=== PATIENT | male | born 1970 | race African-American/Black ===

== ENCOUNTER 2017-06-24 09:23 | Outpatient (CLI) | payer OTHER ==
--- NOTE | 2017-06-24 11:52 | MRI ---
MRI LUMBAR SPINE WITHOUT CONTRAST: Date: 06-24-17 Comparison: None. History: Heavy lifting injury, back pain for two months, sacroiliac joint dysfunction. Technique: Multiplanar, multisequence MR imaging of the lumbar spine provided without contrast. FINDINGS: The sagittal STIR imaging demonstrates no focal area of osseous marrow edema. No anterolisthesis or retrolisthesis seen in the lumbar spine. Assuming five lumbar type vertebral b odies, conus medullaris terminates at the L1 level. T12-L1: Intervertebral disc height and signal intensity within normal limits with no significant salazar tral canal or neural foraminal stenosis. L1-2: Intervertebral disc height and signal intensity is within normal limits with no significant ce ntral canal or neural foraminal stenosis. L2-3: There is disc space narrowing, disc desiccation and anterior osteophyte formation. There is mi ld bilateral facet hypertrophy. No significant central canal or neural foraminal stenosis. L3-4: Mild bilateral facet hypertrophy. Intervertebral disc height and signal intensity is within no rmal limits with no significant central canal or foraminal stenosis. L4-5: Intervertebral disc height and signal intensity is within normal limits. Mild bilateral facet hypertrophy. No significant central canal or neural foraminal stenosis. L5-S1: Intervertebral disc height and signal intensity is grossly unremarkable. No significant centr al canal or neural foraminal stenosis. The imaged retroperitoneal structures appear grossly unremarkable. IMPRESSION: No significant central canal or neural foraminal stenosis. If there is concern for sacroiliac joint dysfunction, dedicated MRI of the sacroiliac joints with an d without contrast suggested. POS: [facility]
== END 2017-06-24 09:24 | disposition home or self-care (01) ==
LOC: MRI 09:23
PROVIDERS: ATTEND Family Medicine
DX: M53.3 Sacrococcygeal disorders, not elsewhere classified (principal)
CPT/HCPCS: 72148

== ENCOUNTER 2017-09-20 12:40 | Emergency (ER) | payer OTHER, SELFPAY | END 2017-09-20 13:16 | disposition home or self-care (01) | LOC: SCSER 12:40 | DX: S29.012A Strain of muscle and tendon of back wall of thorax, initial encounter (principal); E10.9 Type 1 diabetes mellitus without complications; X50.1XXA Overexertion from prolonged static or awkward postures, initial encounter | CPT/HCPCS: 99283 ==

== ENCOUNTER 2017-10-31 12:09 | Emergency (ER) | payer OTHER | END 2017-10-31 13:24 | disposition home or self-care (01) | LOC: SCSER 12:09 | DX: G89.29 Other chronic pain (principal); M54.5 Low back pain; E10.9 Type 1 diabetes mellitus without complications | CPT/HCPCS: 99283 ==

== ENCOUNTER 2017-12-01 08:14 | Emergency (ER) | payer OTHER ==
[2017-12-01 08:52] LABS: #Lymphocytes 1.1 thou/uL (1.20-3.40); #Monocytes 0.4 thou/uL (0.11-0.59); #Neutrophils 1.7 thou/uL (1.40-6.50); %Basophils 0.8 % (0.0-1.0); %Eosinophils 1.2 % (0.0-10.0); %Lymphocytes 35.5 % (21.0-51.0); %Monocytes 11.3 % (0.0-10.0); %Neutrophils 51.3 % (42.0-75.0); Hemoglobin 8.2 g/dL (14.0-18.0); Mean Corpuscular HGB CONC 31.3 g/dL (32.0-36.0); Mean Corpuscular Hemoglobin 29.4 pg (27.0-31.0); Mean Corpuscular Volume 93.8 fl (80.0-94.0); Mean Platelet Volume 7.9 fL (7.4-10.4); Platelet Count 215 thou/uL (130-400); RBC Distribution Width 14.1 % (11.5-14.5); White Blood Cell (WBC) Count 3.2 thou/uL (4.8-10.8)
[2017-12-01 09:14] LABS: ALT (SGPT) 11 U/L (8-55); AST (SGOT) 19 U/L (5-34); Albumin 4.2 g/dL (3.5-5.0); Alkaline Phosphatase 59 U/L (40-150); Anion Gap 10 mmol/L (10-20); BUN (Urea Nitrogen) 12 mg/dL (8.9-20.6); Bilirubin, Total 0.3 mg/dL (0.2-1.2); CK (CPK) 118 U/L (30-200); Calc. Creatinine Clearance 0 mL/min (70-130); Calcium 10.8 mg/dL (7.8-10.44); Carbon Dioxide 29 mmol/L (22-29); Chloride 104 mmol/L (98-107); Estimated GFR-MDRD 58; Globulin 3.6 g/dL (2.4-3.5); Potassium 3.4 mmol/L (3.5-5.1); Protein, Total 7.8 g/dL (6.0-8.3); Sodium 140 mmol/L (136-145)
[2017-12-01 09:17] LABS: Glucose 31 mg/dL (70-105)
[2017-12-01 09:18] LABS: Troponin I 0.017 ng/mL (< 0.028)
[2017-12-01] MEDS ORDERED: Dextrose 50% Abboject 50 ML SYRINGE ONE (09:19)
--- NOTE | 2017-12-01 10:51 | RAD ---
AP CHEST: Indication: Altered mental status. FINDINGS: There are low lung volumes. There is bibasilar atelectasis. There is cardiomegaly without evidence of cardiac decompensation. No acute osseous abnormality is evident. IMPRESSION: 1. Low lung volumes. 2. Cardiomegaly. 3. Bibasilar atelectasis. POS: [facility]
== END 2017-12-01 11:50 | disposition short-term general hospital (02) ==
LOC: ERS 08:14
DX: E10.649 Type 1 diabetes mellitus with hypoglycemia without coma (principal)
CPT/HCPCS: 36415; 36416; 71045; 80053; 82553; 84484; 85025; 96361; 96374

== ENCOUNTER 2017-12-02 18:37 | Observation (INO) | payer OTHER ==
[2017-12-02 19:22] LABS: #Basophils 0.1 thou/uL (0.0-0.2); #Eosinphils 0.1 thou/uL (0.0-0.7); #Lymphocytes 1.3 thou/uL (1.20-3.40); #Monocytes 0.4 thou/uL (0.11-0.59); #Neutrophils 2.4 thou/uL (1.40-6.50); %Basophils 1.5 % (0.0-1.0); %Eosinophils 1.5 % (0.0-10.0); %Lymphocytes 30.4 % (21.0-51.0); %Monocytes 9.4 % (0.0-10.0); %Neutrophils 57.2 % (42.0-75.0); Hemoglobin 8.3 g/dL (14.0-18.0); Mean Corpuscular HGB CONC 32.7 g/dL (32.0-36.0); Mean Corpuscular Hemoglobin 29.7 pg (27.0-31.0); Mean Corpuscular Volume 90.9 fl (80.0-94.0); Mean Platelet Volume 7.3 fL (7.4-10.4); Platelet Count 239 thou/uL (130-400); RBC Distribution Width 14.2 % (11.5-14.5); Red Blood Cell (RBC) Count 2.81 mill/uL (4.70-6.10); White Blood Cell (WBC) Count 4.3 thou/uL (4.8-10.8)
[2017-12-02 19:41] LABS: ALT (SGPT) 12 U/L (8-55); AST (SGOT) 17 U/L (5-34); Albumin 4.6 g/dL (3.5-5.0); Alkaline Phosphatase 65 U/L (40-150); Anion Gap 13 mmol/L (10-20); BUN (Urea Nitrogen) 16 mg/dL (8.9-20.6); Bilirubin, Total 0.3 mg/dL (0.2-1.2); Calc. Creatinine Clearance 0 mL/min (70-130); Calcium 10.7 mg/dL (7.8-10.44); Carbon Dioxide 27 mmol/L (22-29); Chloride 104 mmol/L (98-107); Estimated GFR-MDRD 61; Globulin 4.2 g/dL (2.4-3.5); Potassium 3.1 mmol/L (3.5-5.1); Protein, Total 8.8 g/dL (6.0-8.3); Sodium 141 mmol/L (136-145)
[2017-12-02 19:44] LABS: Glucose 48 mg/dL (70-105)
[2017-12-02] MEDS ORDERED: DEXTROSE 10% IV SCH ×2 (22:00)
[2017-12-02] MEDS ORDERED: WATER IV SCH ×2 (22:00)
[2017-12-02] MEDS ORDERED: SODIUM CHLORIDE IV SCH ×2 (22:00)
[2017-12-02] MEDS ORDERED: Potassium Chloride 20 MEQ TAB PO SCH (22:45)
[2017-12-02 22:53] LABS: Iron 85 ug/dL (65-175); Iron Binding Capacity, Total 264 mcg/dL (261-462)
[2017-12-02] MEDS ORDERED: Dextrose 50% Abboject 50 ML SYRINGE SLOW IVP PRN (23:08)
[2017-12-02] MEDS ORDERED: HYDROcodone/Acetaminophen 10/325 mg Tablet PO PRN (23:08)
[2017-12-02] MEDS ORDERED: Ondansetron ODT 4 MG TAB PO PRN (23:08)
[2017-12-02] MEDS ORDERED: HumaLOG 300 UNITS/3 ML VIAL SC PRN (23:08)
[2017-12-02] MEDS ORDERED: Senokot 8.6 MG TAB PO PRN (23:08)
[2017-12-02] MEDS ORDERED: Dextrose 5% in Water 1,000 ML IV PRN (23:08)
[2017-12-02] MEDS: SODIUM CHLORIDE IV SCH ×2 (23:38)
[2017-12-02] MEDS: WATER IV SCH ×2 (23:38)
[2017-12-02] MEDS: DEXTROSE 10% IV SCH ×2 (23:38)
--- NOTE | 2017-12-02 23:59 | HP ---
DATE OF ADMISSION: 12/02/2017 CHIEF COMPLAINT: Lower blood sugars. HISTORY OF PRESENT ILLNESS: This is a 47-year-old -[place] male with a known history of type 2 diabetes diagnosed 9 years ago and has been on insulin since then. The patient goes to [facility] and was recently having low blood sugars and was also brought to the ER yesterday with l ow blood sugars and was sent back home and was told very strictly by his primary care physician not t o be on any insulin, but today morning he took Humalog of 30 units and today afternoon at around 6:00 p.m. he was driving his vehicle and was caught by the police as he was not driving appropriately and seemed to be in a drunk state. The patient was found by the police, he was pulled over and EMS arri [place]. When they checked his blood sugars were in 30s, so the patient was given D50 over there and was brought to the ER for further evaluation. The patient arrived in the ER, he was given another D50, his blood sugars came up to 49 and since then he was started on D10 and his blood sugars are now 115. The patient is alert and oriented, did not appears to be any acute distress at this time. He denie d having any seizures. He does not remember the whole events and most of the history is obtained fro m the patient's at the bedside. According to the , the patient is usually on Lantus of 80 u nits and Humalog of 30 units, which he takes 30 units in the morning and 30 units of the night, but h e was told very strictly by his [facility] physician to hold off until they see him in the clini c. The patient is seen today, he denies having any chest pain, no nausea, no vomiting, no diarrhea, no constipation. PAST MEDICAL HISTORY: Type 2 diabetes mellitus and hypertension. PAST SURGICAL HISTORY: None. SOCIAL HISTORY: No history of smoking. No history of alcohol. No history of illicit drug use. HOME MEDICATIONS: The patient is on 80 units of Lantus and 30 units of Humalog b.i.d. ALLERGIES: No known drug allergies. REVIEW OF SYSTEMS: All 12 systems are reviewed with the patient thoroughly and found to be negative at this time except the one was described in the HPI. FAMILY HISTORY: No significant family history of diabetes or any cancers in the family. PHYSICAL EXAMINATION: VITAL SIGNS: Blood pressures are 130/88, respiratory rate is 17, and saturation is 96% on room air. GENERAL: The patient is moderately built, moderately nourished, does not appear to be in acute distr ess. CARDIOVASCULAR: S1, S2 normal. No murmurs, rubs or gallops. HEENT: Atraumatic, normocephalic. PERRLA. Extraocular muscles were intact. NECK: No thyromegaly, no JVD, no lymphadenopathy. LUNGS: Bilateral air entry was equal. No wheezing, no crackles. ABDOMEN: Soft, nontender. No guarding, no rebound tenderness. Bowel sounds normal. MUSCULOSKELETAL: No calf tenderness. No pedal edema. No joint tenderness, no joint swelling. SKIN: No cyanosis, no erythema, no rash, no pallor. CRANIAL NERVOUS SYSTEM: Cranial nerve examination II-XII intact. No focal deficits were noted. PSYCHIATRIC: No signs of suicidal ideation. No signs of anna. No signs of agitation. LYMPHATIC: No evidence of any lymph nodes were noted. LABORATORY DATA: WBC is 4.3, hemoglobin is 8.3, and hematocrit is 25.5. Sodium is 141, potassium is 3.1, chloride is 104, bicarbonate is 27, BUN is 16, creatinine is 1.49, and blood sugar is 48 on adm ission. ASSESSMENT: 1. Acute hypoglycemia. 2. Acute hypokalemia. 3. Acute anemia, need to rule out iron deficiency anemia. 4. Hypertension. PLAN: 1. Plan is to closely monitor this patient. We will put him on D10 at 75 mL an hour and closely mon itor and possibly discharge the patient home in the morning. 2. We will continue to enforce to hold off on the insulin at this time. 3. The patient has hypokalemia. We will start the patient on potassium 40 mEq p.o. and we will clos aida monitor. 4. The patient has low hemoglobin surprisingly for his age. We will do a stool occult to look for a ny evidence of occult or malignancy and if positive, we will encourage the patient to follow up with GI as an outpatient for screening colonoscopy. 5. Hypertension is well controlled. We will restart the patient's home medications. I spent 75 minutes with this patient.
[2017-12-03 00:25] VITALS: BMI 33.3
[2017-12-03 07:59] LABS: Anion Gap 13 mmol/L (10-20); BUN (Urea Nitrogen) 14 mg/dL (8.9-20.6); Calc. Creatinine Clearance 84 mL/min (70-130); Calcium 9.7 mg/dL (7.8-10.44); Carbon Dioxide 25 mmol/L (22-29); Chloride 104 mmol/L (98-107); Estimated GFR-MDRD 57; Glucose 155 mg/dL (70-105); Potassium 3.6 mmol/L (3.5-5.1); Sodium 138 mmol/L (136-145)
[2017-12-03 08:32] LABS: #Eosinphils 0.1 thou/uL (0.0-0.7); #Lymphocytes 1.5 thou/uL (1.20-3.40); #Monocytes 0.4 thou/uL (0.11-0.59); #Neutrophils 1.6 thou/uL (1.40-6.50); %Basophils 0.3 % (0.0-1.0); %Eosinophils 1.7 % (0.0-10.0); %Lymphocytes 42.9 % (21.0-51.0); %Monocytes 10.2 % (0.0-10.0); %Neutrophils 44.9 % (42.0-75.0); Hemoglobin 7.2 g/dL (14.0-18.0); Mean Corpuscular HGB CONC 32.2 g/dL (32.0-36.0); Mean Corpuscular Hemoglobin 29.5 pg (27.0-31.0); Mean Corpuscular Volume 91.5 fl (80.0-94.0); Platelet Count 207 thou/uL (130-400); RBC Distribution Width 14.3 % (11.5-14.5); Red Blood Cell (RBC) Count 2.45 mill/uL (4.70-6.10); White Blood Cell (WBC) Count 3.5 thou/uL (4.8-10.8)
[2017-12-03] MEDS ORDERED: Famotidine 20 MG TAB PO SCH (09:00)
[2017-12-03] MEDS ORDERED: Enoxaparin Sodium 40 MG/0.4 ML SYRINGE SC SCH (09:00)
[2017-12-03 09:17] LABS: Hemoglobin 7.6 g/dL (14.0-18.0); Platelet Count 218 thou/uL (130-400)
[2017-12-03] MEDS: SODIUM CHLORIDE IV SCH ×2 (11:12)
[2017-12-03] MEDS: WATER IV SCH ×2 (11:12)
[2017-12-03] MEDS: DEXTROSE 10% IV SCH ×2 (11:12)
[2017-12-03 11:31] VITALS: BP 135/83; TEMP 98.9
--- NOTE | 2017-12-03 19:59 | DIS ---
DATE OF ADMISSION: 12/02/2017 DATE OF DISCHARGE: 12/03/2017 PRIMARY CARE PHYSICIAN: Harjeet Blackwell M.D. DISCHARGE DIAGNOSES: 1. Hypoglycemia. 2. Acute renal insufficiency. CONDITION OF PATIENT ON THE DAY OF DISCHARGE: Stable. I assessed Mr. Howard on the day of discharg e. He denies any chest pain or shortness of breath. Vital signs are stable. S1 and S2 are heard, r egular. Lungs are clear to auscultation bilaterally. DISCHARGE MEDICATIONS: Tylenol Extra Strength 1000 mg 3 times a day, Norvasc 10 mg daily, aspirin 81 mg daily, Flexeril 10 mg 3 times a day as needed, Cymbalta 30 mg 2 times a day, gabapentin 1-3 capsu les at bedtime, ranitidine 300 mg 2 times a day, Levitra 20 mg daily. HOSPITAL COURSE: Mr. Howard is a pleasant 47-year-old gentleman who was admitted to [facility] on 12/02/2017 for hypoglycemia. He was previously instructed by his primary care physician to stop insulin. However, he took insulin on the day of his admission. He just continues fluids. His Accu-Cheks were in the normal range. Fluids were stopped and Accu-Cheks were continued. He continued to do well. He also had acute renal insufficiency, with a creatinine of 1.55 on 12/01/2017, 1.49 on 12/02/2017, a nd 1.58 on 12/03/2017. He is advised to follow up with his primary care physician for further workup . Nephrotoxic medications, including metformin and BERTA inhibitor are on hold at the time of discharg e. He has an appointment with his primary care provider at 4 p.m. today to discuss his diabetes manageme nt as well as acute renal insufficiency. Many thanks for allowing me to participate in your patient's care. Please feel free to contact me wi th any questions or concerns. DISCHARGE DESTINATION: Home.
== END 2017-12-03 14:17 | disposition home or self-care (01) ==
LOC: ERS 18:37 → 2SW 21:45
PROVIDERS: ADMIT Family Medicine; ATTEND Family Medicine
DX: E11.649 Type 2 diabetes mellitus with hypoglycemia without coma (principal); N17.9 Acute kidney failure, unspecified; I10 Essential (primary) hypertension; E87.6 Hypokalemia; D64.89 Other specified anemias; Z79.4 Long term (current) use of insulin; Z79.82 Long term (current) use of aspirin; Z79.899 Other long term (current) drug therapy
CPT/HCPCS: 36415; 36416; 80048; 80053; 83540; 83550; 85025; 96360; 96361; 99285; G0378; J1650

== ENCOUNTER 2022-03-10 07:42 | Emergency (ER) | payer OTHER ==
[2022-03-10] MEDS ORDERED: Fluorescein Opthalmic Strip ONE (08:05)
[2022-03-10] MEDS ORDERED: Proparacaine 0.5% Opth 15 ML BOT ONE (08:05)
== END 2022-03-10 08:20 | disposition home or self-care (01) ==
LOC: ERS 07:42
DX: H00.012 Hordeolum externum right lower eyelid (principal); F17.220 Nicotine dependence, chewing tobacco, uncomplicated; E10.9 Type 1 diabetes mellitus without complications; I10 Essential (primary) hypertension; Z79.4 Long term (current) use of insulin; Z79.899 Other long term (current) drug therapy
CPT/HCPCS: 99283

== ENCOUNTER 2023-05-06 09:54 | Emergency (ER) | payer SELFPAY ==
[2023-05-06 11:40] LABS: SARS-CoV-2 NAA Rapid Test Not Detected (NotDetected)
== END 2023-05-06 12:53 | disposition home or self-care (01) ==
LOC: ERS 09:54
DX: B34.9 Viral infection, unspecified (principal); E10.9 Type 1 diabetes mellitus without complications; I10 Essential (primary) hypertension; F17.220 Nicotine dependence, chewing tobacco, uncomplicated; Z20.822 Contact with and (suspected) exposure to COVID-19
CPT/HCPCS: 71045

== ENCOUNTER 2023-09-11 19:16 | Inpatient (IN) | payer SELFPAY ==
[2023-09-11 20:04] LABS: Bacteria/HPF None Seen HPF (None Seen); Bilirubin Negative (Negative); Blood, Urine Trace (Negative); CAUTI Indications for Culture Alt mental st,lethar; Clarity Clear (Clear); Glucose, Urine (Dipstick) Greater than 1000 mg/dL (Negative); Ketone, Urine Negative (Negative); Leukocyte Negative Leu/uL (Negative); Nitrite Negative (Negative); Protein, Urine (Dipstick) 50 mg/dL (Neg-Trace); RBC/HPF 0-3 HPF (0-3); Specific Gravity, Urine 1.025 (1.002-1.036); Squamous Epithelial 0-3 HPF (0-3); Urobilinogen Normal mg/dL (Less than 2); WBC/HPF 0-3 HPF (0-3); pH, Urine 6.5 (5.0-9.0)
[2023-09-11 20:10] LABS: Base Excess -0.6 mEq/L (-2.0 to +3.0); Calcium, Ionized (venous) 1.18 mmol/L (1.16-1.32); Chloride (VBG) 96 mmol/L (98-106); Hematocrit-VBG 41 % (42.0-52.0); Potassium (VBG) 4.23 mmol/L (3.70-5.30); Sodium 133 mmol/L (133-146); pH (venous) 7.403 (7.32-7.43)
[2023-09-11 20:12] LABS: #Eosinphils 0.1 thou/uL (0.0-0.7); #Monocytes 0.8 thou/uL (0.11-0.59); #Neutrophils 3.2 thou/uL (1.40-6.50); %Basophils 0.5 % (0.0-1.0); %Eosinophils 2.3 % (0.0-10.0); %Lymphocytes 30.1 % (21.0-51.0); %Monocytes 13.9 % (0.0-10.0); Hematocrit 39.2 % (42.0-52.0); Mean Corpuscular HGB CONC 33.2 g/dL (32.0-36.0); Mean Corpuscular Hemoglobin 27.8 pg (27.0-31.0); Mean Corpuscular Volume 83.8 fl (78.0-98.0); Mean Platelet Volume 10.8 fL (7.4-10.4); Platelet Count 311 10x3/uL (130-400); RBC Distribution Width 13.3 % (11.5-14.5); Red Blood Cell (RBC) Count 4.68 mill/uL (4.70-6.10)
[2023-09-11 20:17] LABS: Urine Culture Reflex No No
[2023-09-11] MEDS ORDERED: cloNIDine 0.1 MG TAB ONE (20:27)
[2023-09-11] MEDS ORDERED: diphenhydrAMINE 50 MG/ML VIAL ONE (20:27)
[2023-09-11] MEDS ORDERED: Metoclopramide HCl 10 MG (2 mL) VIAL ONE (20:27)
[2023-09-11 20:39] LABS: ALT (SGPT) 16 U/L (8-55); AST (SGOT) 12 U/L (5-34); Albumin 4.2 g/dL (3.5-5.0); Alkaline Phosphatase 79 U/L (40-110); Anion Gap 11 mmol/L (10-20); BUN (Urea Nitrogen) 21 mg/dL (8.4-25.7); Bilirubin, Total 0.3 mg/dL (0.2-1.2); Calc. Creatinine Clearance 0 mL/min (70-130); Calcium 9.4 mg/dL (7.8-10.44); Carbon Dioxide 26 mmol/L (22-29); Chloride 97 mmol/L (98-107); Estimated GFR 37; Globulin 4.1 g/dL (2.4-3.5); Magnesium 2.4 mg/dL (1.6-2.6); Potassium 4.2 mmol/L (3.5-5.1); Protein, Total 8.3 g/dL (6.0-8.3); Sodium 130 mmol/L (136-145)
[2023-09-11 20:44] LABS: Critical Call Chemistry NUR.KB14@2044; Glucose 586 mg/dL (70-105)
[2023-09-11] MEDS ORDERED: HumaLOG 300 UNITS/3 ML VIAL ONE (20:53)
[2023-09-11 23:00] LABS: Actual Bicarbonate (HCO3v) 22.7 mEq/L (22-28); Base Excess -3.4 mEq/L (-2.0 to +3.0); Calcium, Ionized (venous) 1.16 mmol/L (1.16-1.32); Chloride (VBG) 98 mmol/L (98-106); Hematocrit-VBG 41 % (42.0-52.0); Hemoglobin (Hb) 14.1 g/dL (13.1-17.2); Potassium (VBG) 4.03 mmol/L (3.70-5.30); Sodium 135 mmol/L (133-146); pH (venous) 7.323 (7.32-7.43)
[2023-09-11] MEDS ORDERED: Dextrose 50% Abboject 50 ML SYRINGE SLOW IVP PRN (23:11)
[2023-09-11] MEDS ORDERED: Glucagon 1 MG/ML KIT IM PRN (23:11)
[2023-09-11] MEDS ORDERED: HumaLOG 300 UNITS/3 ML VIAL SC PRN (23:11)
[2023-09-11] MEDS ORDERED: Dextrose 5% in Water 1,000 ML IV PRN (23:11)
[2023-09-11 23:12] LABS: Hemoglobin A1c Greater than 14.0 % (4.0-6.0)
[2023-09-11 23:21] LABS: Glucose 389 mg/dL (70-105)
[2023-09-11] MEDS ORDERED: hydrALAZINE 20 MG/ML VIAL SLOW IVP SCH (23:30)
[2023-09-11] MEDS ORDERED: Insulin Regular 300 UNITS/3 ML VIAL IVP SCH (23:45)
[2023-09-11] MEDS ORDERED: Metoprolol Tartrate 5 MG (5 mL) VIAL ONE (23:45)
[2023-09-11] MEDS ORDERED: Insulin Glargine 30 UNITS/0.3 ML VIAL SC SCH (23:45)
[2023-09-11] MEDS ORDERED: hydrALAZINE 20 MG/ML VIAL ONE (23:52)
[2023-09-11] MEDS ORDERED: Calcium Carbonate 500 MG ChewTAB PO PRN (23:59)
[2023-09-11] MEDS ORDERED: Senokot S 8.6-50 MG TAB PO PRN (23:59)
[2023-09-11] MEDS ORDERED: Acetaminophen 325 MG TAB PO PRN (23:59)
[2023-09-11] MEDS ORDERED: Ondansetron ODT 4 MG TAB PO PRN (23:59)
[2023-09-12] MEDS ORDERED: Insulin Regular 300 UNITS/3 ML VIAL ONE (01:34)
[2023-09-12] MEDS: Lactated Ringer's 1,000 ML IV SCH ×2 (02:00→15:16)
[2023-09-12 02:06] VITALS: BMI 32.5
[2023-09-12 05:14] LABS: #Eosinphils 0.1 thou/uL (0.0-0.7); #Neutrophils 6.6 thou/uL (1.40-6.50); %Basophils 0.2 % (0.0-1.0); %Eosinophils 0.9 % (0.0-10.0); %Lymphocytes 18.6 % (21.0-51.0); %Monocytes 10.8 % (0.0-10.0); %Neutrophils 69.3 % (42.0-75.0); Hematocrit 37.6 % (42.0-52.0); Hemoglobin 12.4 g/dL (14.0-18.0); Mean Corpuscular Hemoglobin 27.4 pg (27.0-31.0); Mean Corpuscular Volume 83.2 fl (78.0-98.0); Mean Platelet Volume 10.7 fL (7.4-10.4); Platelet Count 297 10x3/uL (130-400); RBC Distribution Width 13.2 % (11.5-14.5); Red Blood Cell (RBC) Count 4.52 mill/uL (4.70-6.10); White Blood Cell (WBC) Count 9.5 10x3/uL (4.8-10.8)
[2023-09-12 05:40] LABS: Anion Gap 13 mmol/L (10-20); BUN (Urea Nitrogen) 16 mg/dL (8.4-25.7); Calc. Creatinine Clearance 78 mL/min (70-130); Calcium 8.8 mg/dL (7.8-10.44); Carbon Dioxide 23 mmol/L (22-29); Chloride 102 mmol/L (98-107); Estimated GFR 51; Glucose 202 mg/dL (70-105); Sodium 134 mmol/L (136-145)
[2023-09-12] MEDS ORDERED: Amlodipine 10 MG TAB PO SCH (09:00)
[2023-09-12] MEDS ORDERED: Famotidine 20 MG TAB PO SCH ×2 (09:00→21:00)
[2023-09-12] MEDS ORDERED: Lisinopril 5 MG TAB PO SCH (09:00)
[2023-09-12] MEDS ORDERED: Amlodipine 5 MG TAB ONE (09:04)
[2023-09-12] MEDS ORDERED: Famotidine 20 MG TAB ONE (09:04)
[2023-09-12] MEDS ORDERED: Lisinopril 5 MG TAB ONE (09:04)
[2023-09-12] MEDS: HumaLOG 300 UNITS/3 ML VIAL SC PRN ×3 (09:18→17:00)
[2023-09-12] MEDS ORDERED: HumaLOG 300 UNITS/3 ML VIAL ONE (12:13)
[2023-09-12 14:00] LABS: Amphetamine Not Detected (NotDetected); Barbiturates Screen Not Detected (NotDetected); Benzodiazepine Screen Not Detected (NotDetected); Cocaine Metabolite Screen Not Detected (NotDetected); Methadone Not Detected (NotDetected); Methamphetamine Not Detected (NotDetected); Opiate Screen Not Detected (NotDetected); Oxycodone Screen Not Detected (NotDetected); Phencyclidine (PCP) Not Detected (NotDetected); THC/Cannabinoid Screen Not Detected (NotDetected); Tricyclic Screen Not Detected (NotDetected)
[2023-09-12 18:01] VITALS: BP 153/95; TEMP 97.8
== END 2023-09-12 18:51 | disposition home or self-care (01) | DRG 638 ==
LOC: ERS 19:16 → ERHOLD 23:31
PROVIDERS: ADMIT Student in an Organized Health Care Education/Training Program; ATTEND Internal Medicine
DX: E10.65 Type 1 diabetes mellitus with hyperglycemia (principal); C90.00 Multiple myeloma not having achieved remission; N17.9 Acute kidney failure, unspecified; I16.0 Hypertensive urgency; F17.290 Nicotine dependence, other tobacco product, uncomplicated; E66.9 Obesity, unspecified; Z79.01 Long term (current) use of anticoagulants; Z79.899 Other long term (current) drug therapy; Z98.890 Other specified postprocedural states; Z91.148 Patient's other noncompliance with medication regimen for other reason
CPT/HCPCS: 36415; 36416; 70450; 80048; 80053; 80306; 81001; 82010; 82805; 83036; 83735; 84100; 85025; 87040; 93005; J0360; J1200; J1815; J2765; J7120

== ENCOUNTER 2023-09-13 23:06 | Inpatient (IN) | payer OTHER, SELFPAY ==
[2023-09-14 00:08] LABS: #Eosinphils 0.2 thou/uL (0.0-0.7); #Monocytes 0.8 thou/uL (0.11-0.59); #Neutrophils 1.9 thou/uL (1.40-6.50); %Basophils 0.6 % (0.0-1.0); %Eosinophils 4.6 % (0.0-10.0); %Monocytes 14.8 % (0.0-10.0); %Neutrophils 36.8 % (42.0-75.0); Hematocrit 37.1 % (42.0-52.0); Hemoglobin 12.2 g/dL (14.0-18.0); Mean Corpuscular HGB CONC 32.9 g/dL (32.0-36.0); Mean Corpuscular Hemoglobin 27.5 pg (27.0-31.0); Mean Corpuscular Volume 83.7 fl (78.0-98.0); Mean Platelet Volume 10.4 fL (7.4-10.4); Platelet Count 254 10x3/uL (130-400); RBC Distribution Width 13.3 % (11.5-14.5); Red Blood Cell (RBC) Count 4.43 mill/uL (4.70-6.10); White Blood Cell (WBC) Count 5.2 10x3/uL (4.8-10.8)
[2023-09-14] MEDS ORDERED: Ondansetron PF 4 MG/2 ML Vial ONE (00:14)
[2023-09-14 00:28] LABS: INR-International Normal Ratio 0.9; PTT 26.8 sec (22.9-36.1); Prothrombin Time 11.8 sec (12.0-14.7)
[2023-09-14 00:33] LABS: Actual Bicarbonate (HCO3a) 26.7 mEq/L (22-28); Analyzer IN Cardio ER; Base Excess (BEa) 0.2 mEq/L (-2.0 to +3.0); Calcium, Ionized (arterial) 1.22 mmol/L (1.12-1.30); Carboxyhemoglobin (COHb) 0.6 gm% (0.0-3.0); Hematocrit-ABG 39 % (42.0-52.0); Hemoglobin (Hb) 13.2 g/dL (14.0-18.0); Potassium - ABG Lab 4.17 mmol/L (3.70-5.30); pH, Arterial 7.337 (7.35-7.45)
[2023-09-14 00:39] LABS: ALT (SGPT) 13 U/L (8-55); AST (SGOT) 15 U/L (5-34); Albumin 3.9 g/dL (3.5-5.0); Alkaline Phosphatase 75 U/L (40-110); Anion Gap 16 mmol/L (10-20); BUN (Urea Nitrogen) 29 mg/dL (8.4-25.7); Bilirubin, Total 0.2 mg/dL (0.2-1.2); Calc. Creatinine Clearance 0 mL/min (70-130); Calcium 9.2 mg/dL (7.8-10.44); Carbon Dioxide 21 mmol/L (22-29); Chloride 97 mmol/L (98-107); Critical Call Chemistry NUR.JRH @0037; Estimated GFR 23; Globulin 4.4 g/dL (2.4-3.5); Glucose 612 mg/dL (70-105); Magnesium 2.3 mg/dL (1.6-2.6); Potassium 4.5 mmol/L (3.5-5.1); Protein, Total 8.3 g/dL (6.0-8.3); Sodium 129 mmol/L (136-145)
[2023-09-14 01:06] LABS: Bacteria/HPF None Seen HPF (None Seen); Bilirubin Negative (Negative); Blood, Urine Trace (Negative); CAUTI Indications for Culture Alt mental st,lethar; Clarity Clear (Clear); Glucose, Urine (Dipstick) Greater than 1000 mg/dL (Negative); Ketone, Urine Negative (Negative); Leukocyte Negative Leu/uL (Negative); Nitrite Negative (Negative); Protein, Urine (Dipstick) 30 mg/dL (Neg-Trace); RBC/HPF 0-3 HPF (0-3); Specific Gravity, Urine 1.018 (1.002-1.036); Squamous Epithelial 0-3 HPF (0-3); Urobilinogen Normal mg/dL (Less than 2); WBC/HPF 0-3 HPF (0-3); pH, Urine 6.5 (5.0-9.0)
[2023-09-14 01:08] LABS: Urine Culture Reflex No No
[2023-09-14] MEDS ORDERED: Nitroglycerin 2% Ointment 1 INCH/1 GM Packet ONE (01:20)
[2023-09-14] MEDS ORDERED: Aspirin Chewable 81 MG TAB ONE (01:20)
[2023-09-14] MEDS ORDERED: niCARdipine 25 MG/10 ML SDV ONE (01:20)
[2023-09-14 02:03] LABS: O2 Tension (PaO2), arterial 55.9 mmHg (80.0-100.0)
[2023-09-14 02:04] LABS: Puncture Site LRA
[2023-09-14] MEDS ORDERED: Ondansetron PF 4 MG/2 ML Vial IVP PRN (02:13)
[2023-09-14] MEDS ORDERED: Acetaminophen 325 MG TAB PO PRN (02:13)
[2023-09-14] MEDS ORDERED: niCARdipine 25 MG in Sodium Chloride 0.9% 250 ML 250 ML IVPB SCH (02:15)
[2023-09-14] MEDS ORDERED: Dextrose 50% Abboject 50 ML SYRINGE SLOW IVP PRN (02:30)
[2023-09-14] MEDS ORDERED: HumaLOG 300 UNITS/3 ML VIAL SC PRN (02:30)
[2023-09-14] MEDS ORDERED: Dextrose 5% in Water 1,000 ML IV PRN (02:30)
[2023-09-14] MEDS ORDERED: Glucagon 1 MG/ML KIT IM PRN (02:30)
[2023-09-14] MEDS ORDERED: Acetaminophen 500 MG TAB ONE (02:43)
[2023-09-14] MEDS ORDERED: Sodium Chloride 0.9% 1,000 ML IV SCH (03:00)
[2023-09-14] MEDS ORDERED: Insulin Regular 300 UNITS/3 ML VIAL ONE (03:01)
[2023-09-14 04:30] LABS: #Eosinphils 0.1 thou/uL (0.0-0.7); #Monocytes 0.6 thou/uL (0.11-0.59); #Neutrophils 2.9 thou/uL (1.40-6.50); %Basophils 0.6 % (0.0-1.0); %Eosinophils 1.4 % (0.0-10.0); %Lymphocytes 26.8 % (21.0-51.0); %Monocytes 11.8 % (0.0-10.0); %Neutrophils 59.2 % (42.0-75.0); Hematocrit 36.4 % (42.0-52.0); Hemoglobin 11.7 g/dL (14.0-18.0); Mean Corpuscular HGB CONC 32.1 g/dL (32.0-36.0); Mean Corpuscular Hemoglobin 27.4 pg (27.0-31.0); Mean Corpuscular Volume 85.2 fl (78.0-98.0); Mean Platelet Volume 10.4 fL (7.4-10.4); Platelet Count 247 10x3/uL (130-400); RBC Distribution Width 13.2 % (11.5-14.5); Red Blood Cell (RBC) Count 4.27 mill/uL (4.70-6.10); White Blood Cell (WBC) Count 4.9 10x3/uL (4.8-10.8)
[2023-09-14 04:42] VITALS: BMI 33.5
[2023-09-14] MEDS ORDERED: Gabapentin 100 MG CAP PO SCH (04:45)
[2023-09-14 04:54] LABS: ALT (SGPT) 10 U/L (8-55); AST (SGOT) 11 U/L (5-34); Albumin 3.7 g/dL (3.5-5.0); Alkaline Phosphatase 65 U/L (40-110); BUN (Urea Nitrogen) 26 mg/dL (8.4-25.7); Bilirubin, Total 0.3 mg/dL (0.2-1.2); Calc. Creatinine Clearance 48 mL/min (70-130); Calcium 9.2 mg/dL (7.8-10.44); Carbon Dioxide 22 mmol/L (22-29); Estimated GFR 29; Glucose 219 mg/dL (70-105); Protein, Total 7.7 g/dL (6.0-8.3); Sodium 137 mmol/L (136-145)
[2023-09-14 04:56] LABS: Chloride 105 mmol/L (98-107); Potassium 3.9 mmol/L (3.5-5.1)
[2023-09-14 04:57] LABS: Anion Gap 14 mmol/L (10-20); Troponin I 0.085 ng/mL (< 0.028)
[2023-09-14 06:41] LABS: Troponin I 0.104 ng/mL (< 0.028)
[2023-09-14] MEDS: Heparin 5,000 UNITS/ML VIAL SC SCH ×2 (08:48→21:49)
[2023-09-14] MEDS: Amlodipine 10 MG TAB PO SCH (08:49)
[2023-09-14] MEDS: Insulin NPH Human Isophane 100 UNITS/ML (10 ML VIAL) SC SCH ×2 (09:44→21:48)
[2023-09-14] MEDS: HumaLOG 300 UNITS/3 ML VIAL SC PRN (14:04)
[2023-09-14 14:46] LABS: Actual Bicarbonate (HCO3v) 23.1 mEq/L (22-28); Base Excess -3.5 mEq/L (-2.0 to +3.0); Calcium, Ionized (venous) 1.21 mmol/L (1.16-1.32); Chloride (VBG) 105 mmol/L (98-106); Hematocrit-VBG 35 % (42.0-52.0); Sodium 138 mmol/L (133-146); pH (venous) 7.299 (7.32-7.43)
[2023-09-15 04:23] LABS: #Eosinphils 0.2 thou/uL (0.0-0.7); #Monocytes 0.6 thou/uL (0.11-0.59); #Neutrophils 1.4 thou/uL (1.40-6.50); %Basophils 0.5 % (0.0-1.0); %Eosinophils 5.2 % (0.0-10.0); %Lymphocytes 48.6 % (21.0-51.0); %Neutrophils 32.5 % (42.0-75.0); Hematocrit 34.8 % (42.0-52.0); Hemoglobin 11.3 g/dL (14.0-18.0); Mean Corpuscular HGB CONC 32.5 g/dL (32.0-36.0); Mean Corpuscular Hemoglobin 27.8 pg (27.0-31.0); Mean Corpuscular Volume 85.5 fl (78.0-98.0); Platelet Count 232 10x3/uL (130-400); RBC Distribution Width 13.4 % (11.5-14.5); Red Blood Cell (RBC) Count 4.07 mill/uL (4.70-6.10); White Blood Cell (WBC) Count 4.4 10x3/uL (4.8-10.8)
[2023-09-15 05:00] LABS: ALT (SGPT) 10 U/L (8-55); AST (SGOT) 10 U/L (5-34); Albumin 3.3 g/dL (3.5-5.0); Alkaline Phosphatase 58 U/L (40-110); Anion Gap 13 mmol/L (10-20); BUN (Urea Nitrogen) 16 mg/dL (8.4-25.7); Bilirubin, Total 0.2 mg/dL (0.2-1.2); Calc. Creatinine Clearance 75 mL/min (70-130); Calcium 8.7 mg/dL (7.8-10.44); Carbon Dioxide 22 mmol/L (22-29); Chloride 105 mmol/L (98-107); Estimated GFR 49; Globulin 3.9 g/dL (2.4-3.5); Glucose 283 mg/dL (70-105); Potassium 3.3 mmol/L (3.5-5.1); Protein, Total 7.2 g/dL (6.0-8.3); Sodium 137 mmol/L (136-145)
[2023-09-15] MEDS: HumaLOG 300 UNITS/3 ML VIAL SC PRN (05:59)
[2023-09-15 07:47] VITALS: BP 134/86; TEMP 97.7
[2023-09-15] MEDS: Heparin 5,000 UNITS/ML VIAL SC SCH (08:24)
[2023-09-15] MEDS: Insulin NPH Human Isophane 100 UNITS/ML (10 ML VIAL) SC SCH (08:24)
[2023-09-15] MEDS: Amlodipine 10 MG TAB PO SCH (08:24)
[2023-09-17] MEDS ORDERED: FLU VACC QS2023-24(6MOS UP)/PF 60 MCG/0.5 ML SYRINGE IM ONE (09:00)
== END 2023-09-15 10:24 | disposition home or self-care (01) | DRG 637 ==
LOC: ERS 23:06 → CCU 09-14 02:15 → T4-B 09-14 12:21
PROVIDERS: ADMIT Internal Medicine; ATTEND Emergency Medicine
PROC: 4A133R1 Monitoring of Arterial Saturation, Peripheral, Percutaneous Approach (ICD-10-PCS; principal; 2023-09-14)
DX: E11.10 Type 2 diabetes mellitus with ketoacidosis without coma (principal); G93.41 Metabolic encephalopathy; I16.1 Hypertensive emergency; N17.9 Acute kidney failure, unspecified; E87.1 Hypo-osmolality and hyponatremia; E11.65 Type 2 diabetes mellitus with hyperglycemia; R41.82 Altered mental status, unspecified; F17.290 Nicotine dependence, other tobacco product, uncomplicated; R79.89 Other specified abnormal findings of blood chemistry; Z88.2 Allergy status to sulfonamides; Z79.899 Other long term (current) drug therapy; Z83.3 Family history of diabetes mellitus
CPT/HCPCS: 36415; 36416; 36600; 70450; 71045; 76770; 80053; 81001; 82010; 82805; 83605; 83735; 83880; 83930; 84443; 84484; 85025; 85610; 85730; 87040; 87077; 87149; 93005; J1644; J1815; J2405; J7050